=== PATIENT | female | born 1970 | race Caucasian/White ===

== ENCOUNTER → 2016-05-01 | Outpatient (CLI) | payer BC ==
[~2016-05-01] MED LIST: ATOR-22 PO; ATOR10TA88 PO; OMEG10007 PO; TAMO20TA47 PO
--- NOTE | 2016-05-01 15:22 | MAMMOGRAPHY REPORT ---
BILATERAL DIGITAL DIAGNOSTIC MAMMOGRAM TOMOSYNTHESIS WITH CAD: 05/01/2016 CLINICAL HISTORY: History of left breast cancer status post lumpectomy March 2014 and radiation era, here for short interval follow-up. TECHNIQUE: Breast tomosynthesis in addition to standard 2D mammography was performed. Current study was also evaluated with a Computer Aided Detection (CAD) system. Bilateral CC and MLO 2-D and dereje synthesis images including C views were obtained. COMPARISON: Comparison is made to exams dated: 10/30/2015 mammogram, 04/30/2015 mammogram, 11/02/2014 ult rasound, 11/02/2014 mammogram, and 04/03/2014 mammogram - [facility]. BREAST COMPOSITION: There are scattered areas of fibroglandular density in both breasts. FINDINGS: There has been no significant interval change compared to prior exams. There are stable postsurgical changes in the left upper outer quadrant from prior lumpectomy, including stable densit y and architectural distortion at the lumpectomy bed. Mild diffuse left breast skin thickening is s table, and likely related to prior radiation therapy. Scattered bilateral benign-appearing calcific ations are not significantly changed. IMPRESSION: ACR BI-RADS CATEGORY 2: BENIGN Stable posttreatment changes in the left breast, without mammographic evidence of malignancy in eith er breast. A 1 year screening mammogram is recommended. The patient has been verbally notified of the results. Approximately 10% of breast cancers are not detected with mammography. A negative mammographic repor t should not delay biopsy if a clinically suggestive mass is present. Colleen Pinedo M.D. ah/:05/01/2016 14:26:36 [employer] Bonding Machine Operator: Kimberley MAY(Henrry)(M), [facility] letter sent: Normal 1/2 BI-RADS Code: ACR BI-RADS Category 2: Benign
== END | disposition home or self-care (01) ==
LOC: C.MAMM 14:01
PROVIDERS: ATTEND Surgery
DX: Z08 Encounter for follow-up examination after completed treatment for malignant neoplasm (principal); Z85.3 Personal history of malignant neoplasm of breast; Z92.3 Personal history of irradiation; Z98.890 Other specified postprocedural states

== ENCOUNTER → 2016-10-21 | Day surgery (SDC) | payer BC ==
[2016-10-01 15:15] VITALS: Ht 170.2 cm; Wt 77.3 kg
[~2016-10-21] VITALS: Ht 170.2 cm; Wt 77.3 kg
[~2016-10-21] MED LIST changes: -ATOR10TA88 PO; +ATROPINE SULFATE 0.1 MG/ML 5ML SYR IV PRN; +DEXAMETHASONE SOD INJ 4 MG/ML VIAL IV PRN; +DEXAMETHASONE SOD INJ 4 MG/ML VIAL ONE; +EpHEDrine SULFATE INJ 50 MG/ML AMP IV PRN; +FENTANYL CITRATE INJ 50 MCG/1 ML 2 ML VIAL IV PRN; +FENTANYL CITRATE INJ 50 MCG/1 ML 2 ML VIAL ONE; +IBUPROFEN 600 MG TAB PO PRN; +KETOROLAC TROMETHAMINE 30 MG/ML VIAL IV. PRN; +KETOROLAC TROMETHAMINE 30 MG/ML VIAL ONE; +LABETALOL HCL IV 5 MG/ML 20ML IV PRN; +LACTATED RINGER'S 1000ML 1,000 ML IV SCH; +LIDOCAINE HCL 2% 2 ML VIAL (20MG/ML) ONE; +METOCLOPRAMIDE HCL INJ 5 MG/ML 2 ML VIAL IV PRN; +MIDAZOLAM HCL 1 MG/ML 2ML VIAL ONE; +MoRPHine SULFATE 10 MG/ML CARP/VIAL IV PRN; +ONDANSETRON INJ 2 MG/ML 2 ML VIAL IV PRN; +ONDANSETRON INJ 2 MG/ML 2 ML VIAL ONE; +OXYCODONE/ACETAMINOPHEN 5-325 TAB PO PRN; +PHENYLEPHRINE 100MCG/ML 5ML SYR IV PRN; +PROPOFOL IV EMULSION 10 MG/ML 20 ML VIAL IV ONE; +SODIUM CHLORIDE 0.9% 1000ML 1,000 ML IV SCH
--- NOTE | 2016-10-21 12:09 | History & Physical Bridge - SC ---
H&P Re-Evaluation Bridge Note: I have examined the patient, reviewed the History & Physical and in the interval since the performance of the History & Physical I have noted the following changes of clinical significance: No changes noted
--- NOTE | 2016-10-21 12:11 | Discharge Instructions ---
Discharge Instructions Date of Service Oct 21, 2016. Visit Reason for Visit: Menorrhagia Discharge Discharge Diagnosis / Problem: D&C Discharge Goals Goal(s): Specific goals Activity Recommendations Activity Limitations: per Instructions/Follow-up section Anesthesia . Post Anesthesia Instructions: If you have had General Anesthesia or IV Sedation: * Do not drive today. * Resume driving when surgeon permits. * Do not make important decisions or sign legal documents today. * Call surgeon for: 1. Temperature elevations greater than 101 degrees F. 2. Uncontrollable pain. 3. Excessive bleeding. 4. Persistent nausea and vomiting. 5. Medication intolerance (nausea, vomiting or rash). * For nausea and vomiting use only clear liquids such as: tea, soda, bouillon until nausea subsides, then gradually increase diet as tolerated. * If you have any concerns or questions, call your surgeon's office. If physician is unavailable and it is an emergency, call 911 or go to the nearest emergency room. . Diet Recommendations Recommended Home Diet: resume previous diet Pending Studies Studies pending at discharge: no Medical Emergencies . Who to Call and When: Medical Emergencies: If at any time you feel your situation is an emergency, please call 911 immediately. . Non-Emergent Contact Non-Emergency issues call your: Primary Care Provider . . "Provider Documentation" section prepared by Patt Conde. .
--- NOTE | 2016-10-21 12:48 | [facility] Operative Report ---
Operative Report Operative Date Oct 21, 2016. Pre-Operative Diagnosis Menorrhagia Post-Operative Diagnosis Same Procedure(s) Performed Dilatation And Curettage, Hysteroscopy, Polypectomy Surgeon Dr Conde Animal Feeder Surgeon(s) None Estimated Blood Loss 5ml Findings Polypoid thickened endometrium Specimens A. Endometrial Currettings and Polyp Complication(s) None Disposition Recovery Room / PACU Description of Procedure Annelise was placed in dorsal lithotomy with candycane stirrups, prepped and draped, and time out was taken. BLadder emptied via straight cath for 10cc clear yellow urine. Specula introduced to vagina and single tooth tenaculum placed on anterior lip of cervix. Uterus sounded to 10.5cm. Cervix dilated to 17fr. Hysteroscope introduced. R ostium seen, L obscured by large polyp. Forceps then used to grasp and remove polyp, and sharp curettage carried out until good cry felt on all aranda. Scope reintroduced to show a now cleared and uniform uterine cavity with bilateral ostia visible. Fluid deficit 30cc. EBL 5cc. I attest to the content of the Intraoperative Record and any orders documented therein. Any exceptions are noted below.
[2016-10-21 13:20] VITALS: TEMP 36.2
[2016-10-21 13:54] VITALS: BP 120/71; PULSE 68; O2SAT 99
--- NOTE | 2016-10-21 14:01 | Anesthesia Progress Nt - [facility] ---
Anesthesia Post Op Note Date & Time Oct 21, 2016 at 14:01 Vital Signs Pain Intensity: 0 Vital Signs Past 12 Hours Date Time Temp Pulse Resp B/P (MAP) Pulse Ox O2 Delivery O2 Flow Rate FiO2 10/21/16 13:54 68 16 120/71 (87) 99 Room Air 10/21/16 13:20 36.2 77 16 125/83 (97) 100 Room Air 10/21/16 13:16 36.4 76 16 128/85 (97) 98 Room Air 5 Mask 10/21/16 13:07 88 20 10/21/16 13:07 87 20 98 10/21/16 13:06 119/85 10/21/16 13:02 92 21 10/21/16 13:02 93 21 100 10/21/16 13:01 124/84 10/21/16 12:57 64 10 10/21/16 12:57 63 10 100 10/21/16 12:56 108/70 10/21/16 12:52 62 9 10/21/16 12:52 62 9 100 10/21/16 12:51 108/73 10/21/16 12:50 65 9 100 10/21/16 12:50 65 9 10/21/16 12:46 114/76 10/21/16 12:45 36.1 62 16 114/76 99 Mask 5 10/21/16 11:24 36.8 93 16 119/77 (91) 98 Room Air Notes Mental Status: alert / awake / arousable, participated in evaluation Pt Amnestic to Procedure: Yes Nausea / Vomiting: adequately controlled Pain: adequately controlled Airway Patency, RR, SpO2: stable & adequate BP & HR: stable & adequate Hydration State: stable & adequate Anesthetic Complications: no major complications apparent
== END | disposition home or self-care (01) ==
LOC: X.SURG 11:09
PROVIDERS: ATTEND Obstetrics & Gynecology
DX: N92.0 Excessive and frequent menstruation with regular cycle (principal); Z80.41 Family history of malignant neoplasm of ovary

== ENCOUNTER → 2017-03-02 | Outpatient (CLI) | payer BC ==
[~2017-03-02] MED LIST changes: -ATROPINE SULFATE 0.1 MG/ML 5ML SYR IV PRN; -DEXAMETHASONE SOD INJ 4 MG/ML VIAL IV PRN; -DEXAMETHASONE SOD INJ 4 MG/ML VIAL ONE; -EpHEDrine SULFATE INJ 50 MG/ML AMP IV PRN; -FENTANYL CITRATE INJ 50 MCG/1 ML 2 ML VIAL IV PRN; -FENTANYL CITRATE INJ 50 MCG/1 ML 2 ML VIAL ONE; -IBUPROFEN 600 MG TAB PO PRN; -KETOROLAC TROMETHAMINE 30 MG/ML VIAL IV. PRN; -KETOROLAC TROMETHAMINE 30 MG/ML VIAL ONE; -LABETALOL HCL IV 5 MG/ML 20ML IV PRN; -LACTATED RINGER'S 1000ML 1,000 ML IV SCH; -LIDOCAINE HCL 2% 2 ML VIAL (20MG/ML) ONE; -METOCLOPRAMIDE HCL INJ 5 MG/ML 2 ML VIAL IV PRN; -MIDAZOLAM HCL 1 MG/ML 2ML VIAL ONE; -MoRPHine SULFATE 10 MG/ML CARP/VIAL IV PRN; -ONDANSETRON INJ 2 MG/ML 2 ML VIAL IV PRN; -ONDANSETRON INJ 2 MG/ML 2 ML VIAL ONE; -OXYCODONE/ACETAMINOPHEN 5-325 TAB PO PRN; -PHENYLEPHRINE 100MCG/ML 5ML SYR IV PRN; -PROPOFOL IV EMULSION 10 MG/ML 20 ML VIAL IV ONE; -SODIUM CHLORIDE 0.9% 1000ML 1,000 ML IV SCH; -TAMO20TA47 PO; +TAMO20TA9 PO
[2017-03-02 14:20] VITALS: BP 120/77; PULSE 82; TEMP 36.7; O2SAT 98
--- NOTE | 2017-03-02 15:39 | Radiation Oncology Follow-Up ---
Radiation Oncology Follow-Up Date of Visit Mar 02, 2017. Reason For Visit Annual follow-up Radiation Completion Date finished 07-26-2014 utilizing hypo fractionation Diagnosis (1) Breast cancer Status: Resolved Onset Date: 04/17/2014 Histology Subtype: ductal Stage: l Permanent Comment: Status post left breast biopsy 04/17/2014 Status post lumpectomy and sentinel lymph node biopsy 04/27/2014 stage [id number] Estrogen receptor positive, progesterone receptor positive, HER-2/les negative Oncotype DX score of 13 Status post completion of radiation therapy 07/26/2014 received 5000 cGy utilizing hypo-fractionation Last Edited By: Mary Mccall on Aug 30, 2014 16 :08 History of Present Illness Ms. Gomez has a family history of ovarian and uterine cancer. The patient's and developed ovarian cancer at age 65 and her mother developed cancer of the ovary at age 60 and at age 63. They didn't test the mother for the brachial mutation and was negative. The testing that was to proceed on Ms. Gomez was therefore stopped. She went to her first ever bilateral screening mammogram on 04/03/2014. This showed in the middle third of the left upper outer quadrant an irregularly marginated 1.0 cm nodule. This was given a BI-RADS Category 0 with recommendation for spot compression views and breast ultrasound. On patient underwent a unilateral left digital diagnostic mammogram and targeted left breast ultrasound. The spot compression views demonstrated a persistent oval 1.0 cm mass with non- circumscribed margins in the left upper outer quadrant middle depth. The targeted ultrasound of the left upper outer quadrant demonstrates a round hypoechoic solid mass with irregular non-circumscribed margins measuring 0.7 x 0.6 x 0.8 cm. This correlates with the mammographic mass. These were felt to be suspicious and were given a BI-RADS Category 4 C with recommended biopsy. On 04/17/2014 the patient underwent an ultrasound-guided biopsy of the left breast mass. This confirmed an infiltrating ductal carcinoma grade 1 of 3 on the Pawlet scale. The tumor measured up to 0.7 cm on the core biopsy. There was no DCIS or LCIS identified. There was no lymphovascular or perineural invasion identified. Estrogen receptors were positive (greater than 90%, strong). Progesterone receptors were positive (90%, strong). HER-2/les overexpression was negative by immunohistochemistry and confirmed negative by FISH analysis. Case: [id number]. Patient was subsequent seen by Dr. Rufus Nieto for discussion of definitive surgical treatment options. He reviewed with her the various options and the patient chose to proceed with a breast conserving therapy. On 04/30/2014 patient underwent a left partial mastectomy and sentinel lymph node biopsy. The partial mastectomy specimen revealed an infiltrating ductal carcinoma Pawlet grade 2 of 3. The tumor measured 1.2 cm. All margins were negative. There was evidence of high-grade DCIS, cribriform type with calcifications but no comedonecrosis identified. A focus of DCIS was 0.2 cm from the inferior margin. The invasive carcinoma was 0.7 cm superior margin, 0.8 cm inferior margin and greater than 1 cm from the remaining margins. There was no lymphovascular invasion and no perineural invasion identified. 2 sentinel lymph nodes were identified and both were negative on H&E and quijano keratin immunostains. The final pathologic stage was therefore a pT1c pN0 (i-). ER positive NM positive HER-2/les negative. The patient is recovered well from surgery. She was seen by Dr. Rich Fraga and Oncotype DX was ordered. This revealed a score of 13. She did not require chemotherapy. She returned to our office for CT simulation. She was found to be a good candidate for hypo-fractionation. She completed radiation therapy 07/26/2014. She received 5000 cGy. Utilizing hypo-fractionation. Interim History She has been followed with recheck CEA 125's due to her family history of ovarian cancer. This past year she had a D&C. She reports this to be benign. Pathology was reviewed in the computer. On 10/21/2016 she had endometrial curettings and polyp evaluated. This showed benign endometrial polyp. Fragments of benign secretory phase endometrium. Negative for atypical hyperplasia and carcinoma. Specimen [id number]. In regards to her breast she is noted no masses or tenderness no change of the axilla. She's had no swelling of her arm. She is up-to-date on mammography. She continues on tamoxifen and denies side effects. Allergies Coded Allergies: Penicillins (Verified Allergy, Unknown, UNKNOWN, 10/21/16) Home Medications Scheduled Atorvastatin (Lipitor), 20 MG PO QAM Fish Oil ([place]-3), 2 CAP PO QAM Tamoxifen (Nolvadex), 20 MG PO QAM Review of Systems Gastrointestinal: Symptoms: WNL Oral: Symptoms: No Problems Respiratory: Symptoms: WNL Urinary: Symptoms: WNL Skin: Symptoms: No Problems Breast: Right Upper Arm Measurement: 27.5 Right Mid Arm Measurement: 25.0 Right Wrist Measurement: 16.0 Left Upper Arm Measurement: 29.0 Left Mid Arm Measurement: 25.0 Left Wrist Measurement: 15.9 Arm Dominence: Right Patient Cosmetic Evaluation: Excellent Staff Cosmetic Evalaluation: Excellent Physical Exam Vital Signs Date Time Temp Pulse Resp B/P (MAP) Pulse Ox O2 Delivery O2 Flow Rate FiO2 03/02/17 14:20 36.7 82 16 120/77 98 Fatigue: None General Appearance: no apparent distress Eyes: normal inspection, EOMI ENT: normal ENT inspection, hearing grossly normal Neck: no adenopathy, thyroid normal Respiratory/Chest: lungs clear, no respiratory distress, no accessory muscle use Breast: Breast examination reveals well-healed incisions of the left breast. There are no masses or tenderness and no axillary adenopathy. She has no skin retractions or nipple changes. Using the [place] score cosmesis she has an excellent outcome. The right breast showed no masses or tenderness and no axillary adenopathy. Cardiovascular: regular rate, rhythm, no gallop, no murmur Abdomen: non tender Extremities: no pedal edema Neurologic/Psychiatric: no motor/sensory deficits, alert, normal mood/affect Skin: warm/dry Pain Management Patient Reports Pain: No Side: Bilateral Patient Preferred Pain Scale: 0 - 10 Initial Pain Intensity: 0.0 Pain Management Plan She denies pain therefore requires no pain management. Laboratory Laboratory Results: were reviewed, and pertinent findings noted in [facility] Pathology Pathology Results: were reviewed, and pertinent findings noted below, and pertinent findings noted in [facility] Pathology Comments [facility] SURGICAL PATHOLOGY REPORT Name ANNELISE GOMEZ Case: [id number] SURGICAL PATHOLOGY REPORT Page [address] of [address] [place] [address] Rm Jerome M.D. incident engineer PATHOLOGY REPORT SURGICAL PATHOLOGY REPORT Page 1 of 1 Name ANNELISE GOMEZ Age/Sex 46/F Location: X.SURG MR# [id number] : 1970 /Bed Physician: Patt Conde MD Case: [id number] Received 10/21/16 Specimen Date 10/21/16 CLINICAL HISTORY Menorrhagia. GROSS DESCRIPTION ENDOMETRIAL CURETTINGS AND POLYP The specimen is received in a container labeled as endometrial curettings and polyp with patient name Annelise Gomez. The specimen consists of multiple irregular fragments of pink, rubbery tissue and blood clot, in all approximately 12 cc. The larger fragments are sectioned and the specimen is entirely submitted in six cassettes. SH/pi FINAL DIAGNOSIS ENDOMETRIUM, CURETTAGE: 1. BENIGN ENDOMETRIAL POLYP. 2. FRAGMENTS OF BENIGN SECRETORY PHASE ENDOMETRIUM. 3. NEGATIVE FOR ATYPICAL HYPERPLASIA AND CARCINOMA. BK/mas COPIES TO Romeo Crockett D.O. [facility] [address] [place] [address] Patt Conde MD [address] [place] [address] Signed: <signature on file> 10/22/16 Tristan Araiza MD Imaging Imaging Studies: were reviewed, and pertinent findings noted below Imaging Comments Patient: ANNELISE GOMEZ [facility] Rec: [id number] Address1: [facility] [facility] Address2: Acct ID: [id number] Date: 1970 Sex: F Ref Phy: Att Phy: Rufus Nieto M.D. Gricel Phy: Romeo Crockett D.O. Inter Phy: Colleen Pinedo MD [facility] Zip: [place] [address] SC: C.MAMM Report #: [id number] Supervisor Facepiece Line: STEWST Diagnosis: 6 MONTH F/U BILATERAL HX BREAST CA Service Date: 05/01/16 MNE: [id number] Ordering Dr: Rufus Nieto M.D. CC: Rufus Nieto M.D. CONF: DICTATED BY: Colleen Pinedo MD MAMMOGRAPHY REPORT BILATERAL DIGITAL DIAGNOSTIC MAMMOGRAM TOMOSYNTHESIS WITH CAD: 05/01/2016 CLINICAL HISTORY: History of left breast cancer status post lumpectomy March 2014 and radiation therapy, here for short interval follow-up. TECHNIQUE: Breast tomosynthesis in addition to standard 2D mammography was performed. Current study was also evaluated with a Computer Aided Detection (CAD ) system. Bilateral CC and MLO 2-D and tomosynthesis images including C views were obtained. COMPARISON: Comparison is made to exams dated: 10/30/2015 mammogram, 04/30/2015 mammogram, 11/02/2014 ultrasound, 11/02/2014 mammogram, and 04/03/2014 mammogram - [facility]. BREAST COMPOSITION: There are scattered areas of fibroglandular density in both breasts. FINDINGS: There has been no significant interval change compared to prior exams. There are stable postsurgical changes in the left upper outer quadrant from prior lumpectomy, including stable density and architectural distortion at the lumpectomy bed. Mild diffuse left breast skin thickening is stable, and likely related to prior radiation therapy. Scattered bilateral benign- appearing calcifications are not significantly changed. IMPRESSION: ACR BI-RADS CATEGORY 2: BENIGN Stable posttreatment changes in the left breast, without mammographic evidence of malignancy in either breast. A 1 year screening mammogram is recommended. The patient has been verbally notified of the results. Approximately 10% of breast cancers are not detected with mammography. A negative mammographic report should not delay biopsy if a clinically suggestive mass is present. Colleen Pinedo M.D. ah/:05/01/2016 14:26:36 [employer] Wet Process: Kimberley MAY(Henrry)(Adelina), [facility] letter sent: Normal 1/2 BI-RADS Code: ACR BI-RADS Category 2: Benign Dictated by: Colleen Pinedo MD Signed by: Colleen Pinedo MD Assessment & Plan Plan: Continue annual mammography. She has a mammogram scheduled for April. Continue follow-up with her primary care physician. She is contemplating which office she will follow with in regards to refills of the tamoxifen. She had previously seen Dr. Fraga. She also may decide to follow-up with Dr. Nieto's new replacement. Either way she will make an appointment. We asked to return to our office in 1 year. She may call if she has any questions or concerns in the interim. Total Time In Follow-Up I spent 20 minutes speaking to the patient performing examination. I spent 15 minutes reviewing information and completing this note. Copy To Rufus Nieto M.D.; Romeo Crockett D.O.; Rich Fraga M.D. Problem Qualifiers (1) Breast cancer: Breast location: upper outer quadrant of breast Estrogen receptor status: positive Patient sex: female Laterality: left Qualified Codes: C50.412 - Malignant neoplasm of upper-outer quadrant of left female breast; Z17.0 - Estrogen receptor positive status [ER+]
== END | disposition home or self-care (01) ==
LOC: C.ONC 14:10
PROVIDERS: ATTEND Physician Assistant Medical
DX: Z08 Encounter for follow-up examination after completed treatment for malignant neoplasm (principal); Z92.3 Personal history of irradiation; Z85.3 Personal history of malignant neoplasm of breast

== ENCOUNTER → 2017-05-03 | Outpatient (CLI) | payer OTHER ==
--- NOTE | 2017-05-04 13:29 | MAMMOGRAPHY REPORT ---
BILATERAL DIGITAL SCREENING MAMMOGRAM TOMOSYNTHESIS WITH CAD: 05/03/2017 CLINICAL HISTORY: Asymptomatic. Personal history of breast cancer. TECHNIQUE: Breast tomosynthesis in addition to standard 2D mammography was performed. Current study was also evaluated with a Computer Aided Detection (CAD) system. COMPARISON: Comparison is made to exams dated: 05/01/2016 mammogram, 10/30/2015 mammogram, 04/30/2015 mamm ogram, 11/02/2014 mammogram, 04/03/2014 mammogram, and 04/16/2014 mammogram - [facility] . BREAST COMPOSITION: There are scattered areas of fibroglandular density in both breasts. FINDINGS: There are stable postsurgical changes in left breast with expected architectural distortion in the upper outer quadrant at the site of prior lumpectomy. There are scattered benign-appearing c alcifications bilaterally. Mild involutional changes comparing to prior mammograms. No new suspicio us mass, architectural distortion or cluster of microcalcifications is seen. IMPRESSION: ACR BI-RADS CATEGORY 1: NEGATIVE There is no mammographic evidence of malignancy. A 1 year screening mammogram is recommended. The pa tient will receive written notification of the results. Approximately 10% of breast cancers are not detected with mammography. A negative mammographic report should not delay biopsy if a clinically suggestive mass is present. Yenny Lowery M.D. ay/:05/03/2017 14:58:44 Customer Solutions Coordinator: Desiree EVANS)(Adelina), [facility] letter sent: Normal 1/2 BI-RADS Code: ACR BI-RADS Category 1: Negative
== END | disposition home or self-care (01) ==
LOC: C.MAMM 14:01
PROVIDERS: ATTEND Obstetrics & Gynecology
DX: Z12.31 Encounter for screening mammogram for malignant neoplasm of breast (principal)